=== PATIENT | female | born 1990 | race American Indian/Alaskan Native ===

== ENCOUNTER 2017-04-15 09:10 | Outpatient (CLI) | payer MEDICAID ==
[2017-04-15 09:34] VITALS: BP 115/63
== END 2017-04-15 10:40 | disposition home or self-care (01) ==
LOC: TRG 09:10
PROVIDERS: ATTEND Obstetrics & Gynecology
DX: Z34.93 Encounter for supervision of normal pregnancy, unspecified, third trimester (principal); Z3A.39 39 weeks gestation of pregnancy

== ENCOUNTER 2017-04-17 00:24 | Outpatient (CLI) | payer MEDICAID ==
[2017-04-17 00:40] VITALS: BP 114/60
--- NOTE | 2017-04-17 09:09 | Ultrasound Report ---
ULTRASOUND OB LIMITED History: Oligohydramnios, leaking amniotic fluid, rupture of membranes Technique: Transabdominal ultrasound with Doppler interrogation. Gestation: Single Amniotic Fluid: Normal NELY = 7.3 cm
== END 2017-04-17 02:31 | disposition home or self-care (01) ==
LOC: TRG 00:24
PROVIDERS: ATTEND Obstetrics & Gynecology
DX: O47.1 False labor at or after 37 completed weeks of gestation (principal); Z3A.39 39 weeks gestation of pregnancy
CPT/HCPCS: 59025; 76815

== ENCOUNTER 2017-04-17 04:11 | Inpatient (IN) | payer MEDICAID ==
[2017-04-17] MEDS ORDERED: XYLOCAINE 2% INFILTRATI ONE ×3 (04:25→08:03)
[2017-04-17] MEDS ORDERED: BRETHINE IVP PRN (04:25)
[2017-04-17] MEDS ORDERED: SUBLIMAZE IV PRN (04:25)
[2017-04-17] MEDS ORDERED: BRETHINE SUB-Q PRN (04:25)
[2017-04-17] MEDS ORDERED: MINERAL OIL PO PRN (04:25)
[2017-04-17] MEDS ORDERED: STADOL IV PRN (04:25)
[2017-04-17] MEDS ORDERED: PITOCin/NS 30 UNIT/500ML 30 UNITS/500 ML BAG IV SCH ×2 (05:00→07:00)
[2017-04-17] MEDS ORDERED: PITOCin/NS 20 UNIT/1000ML DRIP 20 UNITS/1,000 ML BAG IV SCH ×2 (05:00→09:00)
[2017-04-17 05:19] LABS: Hematocrit 35.2 % (30.3-42.9); Hemoglobin 11.1 gm/dl (10.1-14.3); Mean Corpuscular HGB Conc 32 % (30-34); Mean Corpuscular Hemoglobin 26 pg (28-32); Mean Corpuscular Volume 81 fl (79-97); Platelet Count 260 K/mm3 (140-440); Red Blood Count 4.36 M/mm3 (3.65-5.03); Red Cell Distribution Width 14.9 % (13.2-15.2); White Blood Count 11.7 K/mm3 (4.5-11.0)
[2017-04-17] MEDS: LACTATED RINGERS 1,000 ML IV SCH ×2 (05:49→07:09)
[2017-04-17] MEDS ORDERED: ePHEDrine SULFATE ONE ×2 (06:56→06:57)
[2017-04-17] MEDS: ePHEDrine SULFATE IV PRN ×2 (06:56→06:58)
[2017-04-17] MEDS ORDERED: ePHEDrine SULFATE IV PRN (07:08)
[2017-04-17] MEDS ORDERED: NARCAN 2 MG/2 ML IV PRN (07:08)
--- NOTE | 2017-04-17 07:08 | Anesthesia Consultation ---
Anesthesia Consult and Med Hx Date of service: 04/17/17 - Airway Anesthetic Teeth Evaluation: Good Intubation Access Assessment: Possibly Difficult - Pre-Operative Health Status ASA Pre-Surgery Classification: ASA3, Emergency Proposed Anesthetic Plan: Epidural, Spinal - Pulmonary Hx Asthma: No COPD: No Hx Pneumonia: No - Cardiovascular System Hx Hypertension: No - Central Nervous System Hx Seizures: No Hx Psychiatric Problems: No - Endocrine Hx Renal Disease: No Hx End Stage Renal Disease: No Hx Hypothyroidism: No Hx Hyperthyroidism: No - Hematic Hx Anemia: No Hx Sickle Cell Disease: No - Other Systems Hx Alcohol Use: No
[2017-04-17] MEDS ORDERED: fentaNYL-BUPIV 2 MCG/ML-0.125% 200 MCG/100 ML BAG EPIDURAL SCH (08:00)
--- NOTE | 2017-04-17 08:27 | History and Physical Report ---
History of Present Illness Date of examination: 04/17/17 Date of admission: 04/17/17 05:52 Chief complaint: srom and contractions History of present illness: This is a 26 yo at 40 weeks EDC 04/20/17 came in last night c/o contractions and was sent home and came back in active labor at 4-5 cm. 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 denies: smoking, alcohol abuse, IV drug use - Obstetrical History Expected Date of Delivery: 04/20/17 Actual Gestation: 39 Week(s) 4 Day(s) : 2 Para: 2 Hx # Term Pregnancies: 1 Number of Pregnancies: 0 Spontaneous Abortions: 0 Induced : 0 Number of Living Children: 1 Medications and Allergies Allergies Allergy/AdvReac Type Severity Reaction Status Date / Time No Known Allergies Allergy Verified 05/30/16 22:31 Home Medications Medication Instructions Recorded Confirmed Last Taken Type Acetaminophen/Codeine [Tylenol #3] 1 tab PO Q6H PRN #14 tab 11/01/15 11/04/15 17:00 Rx Levofloxacin [Levaquin TAB] 500 mg PO QDAY #7 tablet 11/01/15 11/04/15 11/03/15 17:00 Rx Diphenoxylate/Atropine [Lomotil] 1 tab PO Q4H PRN #16 tablet 11/04/15 Unknown Rx HYDROcodone/APAP 5-325 [[place] 1 each PO Q6HR PRN #14 tablet 05/31/16 Unknown Rx 5/325] Ibuprofen [Motrin] 600 mg PO Q8H PRN #20 tablet 05/31/16 Unknown Rx Active Meds: Active Medications Butorphanol Tartrate (Stadol) 2 mg IV Q2H PRN PRN Reason: Pain , Severe (7-10) Fentanyl (Sublimaze) 100 mcg IV Q2H PRN PRN Reason: Labor Pain Last Admin: 04/17/17 04:46 Dose: 100 mcg Lactated Ringer's (Lactated Ringers) 1,000 mls @ 125 mls/hr IV DIRECT DAYSI Last Admin: 04/17/17 07:09 Dose: 125 mls/hr Oxytocin/Sodium Chloride (Pitocin/Ns 20 Unit/1000ml Drip) 20 units in 1,000 mls @ 125 mls/hr IV DIRECT DAYSI Oxytocin/Sodium Chloride (Pitocin/Ns 30 Unit/500ml) 30 units in 500 mls @ 4 mls /hr IV TITR DAYSI PRN Reason: Protocol Oxytocin/Sodium Chloride (Pitocin/Ns 30 Unit/500ml) 30 units in 500 mls @ 1 mls /hr IV TITR DASYI; 1 MILLIUNITS/MIN PRN Reason: Protocol Fentanyl/Bupivacaine/Sodium Chlor (Fentanyl-Bupiv 2 Mcg/Ml-0.125%) 200 mcg in 100 mls @ 12 mls/hr EPIDURAL TITR DAYSI PRN Reason: Protocol Last Admin: 04/17/17 07:30 Dose: 12 mls/hr Mineral Oil (Mineral Oil) 30 ml PO QHS PRN PRN Reason: Constipation Review of Systems All systems: negative Genitourinary: leakage of fluid, contractions - Vital Signs Vital signs: Vital Signs Pulse Pulse Ox 93 H 98 04/17/17 04:25 04/17/17 04:25 Temp Pulse Resp BP Pulse Ox 98.2 F 94 H 22 134/63 100 04/17/17 07:11 04/17/17 08:19 04/17/17 07:11 04/17/17 07:53 04/17/17 08:19 - Physical Exam Breasts: Positive: deferred Cardiovascular: Regular rate, Normal S1 Lungs: Positive: Clear to auscultation, Normal air movement Abdomen: Positive: normal appearance, soft, normal bowel sounds. Negative: distention, tenderness Genitourinary (Female): Positive: normal external genitalia, normal perenium Vulva: both: normal Vagina: Positive: normal moisture Uterus: Positive: normal size, normal contour Anus/Rectum: Positive: normal perianal skin, heme negative Extremities: Positive: normal Deep Tendon Reflex Grade: Normal +2 - Obstetrical FHR: category 1 Uterine Contraction Monitor Mode: Palpation Cervical Dilatation: 10 Uterine Contraction Pattern: Regular Uterine Tone Measurement Phase: Contraction Uterine Contraction Intensity: Strong/Firm Results Result Diagrams: 04/17/17 04:40 Abnormal lab results 04/17/17 Range/Units 04:40 WBC 11.7 H (4.5-11.0) K/mm3 MCH 26 L (28-32) pg All other labs normal. Assessment and Plan A/P 26 yo at 39+weeks in active labor, srom clear, morbid obesity 1. GBS neg no abx needed 2. ivf and intial labs 3. expect vaginal delivery
[2017-04-17] MEDS ORDERED: TORADOL IV PRN (08:31)
[2017-04-17] MEDS ORDERED: MILK OF MAGNESIA PO PRN (08:31)
[2017-04-17] MEDS ORDERED: NORCO 5/325 PO PRN (08:31)
[2017-04-17] MEDS ORDERED: PHENERGAN PR PRN (08:31)
[2017-04-17] MEDS ORDERED: LANSINOH TP PRN (08:31)
[2017-04-17] MEDS ORDERED: PHENERGAN PO PRN (08:31)
[2017-04-17] MEDS ORDERED: BENADRYL PO PRN (08:31)
[2017-04-17] MEDS ORDERED: ZOFRAN IV PRN (08:31)
[2017-04-17] MEDS ORDERED: TUCKS PAD TP PRN (08:31)
[2017-04-17] MEDS ORDERED: TYLENOL PO PRN (08:31)
[2017-04-17] MEDS ORDERED: DULCOLAX PR PRN (08:31)
--- NOTE | 2017-04-17 08:39 | Procedure Note ---
OB Delivery Note - Delivery Date of Delivery: 04/17/17 Surgeon: ИВАН MON Estimated blood loss: 500cc - Vaginal Delivery position: OA Delivery induction: none Delivery monitor: external FHT, external uterine Route of delivery: Delivery placenta: spontaneous Delivery cord: 3 umbilical vessels Episiotomy: none Delivery laceration: 1st degree Delivery repair: vicryl Delivery comments: Patient was noted to be c/c+1 and commenced to pushing. She pushed 3 times and delivered the head in oa presentation the shoulders delivered easily and placed on mom skin to skin. the naso pahynx and oropharynx suctioned. the cord was clamped and cut. cord gas was obtained. Baby was 8# 2oz =3697 g.. Apgars 8 and 9. the baby delivered 0757 and placenta delivered 0801. Excellent hemostasis with repair of 1st degress with vicryl. EBL 500cc. Patient bonding with baby. - A at 1 minute: 8 at 5 minutes: 9 Gender: Male
[2017-04-17] MEDS ORDERED: SODIUM CHLORIDE FLUSH SYRINGE 10 ML IV NR (09:00)
[2017-04-17] MEDS: PRENATAL VITAMIN PO SCH (10:40)
[2017-04-17] MEDS: PERCOCET 5/325 PO PRN ×2 (10:40→17:00)
[2017-04-17] MEDS: COLACE PO SCH ×2 (10:40→22:09)
[2017-04-17 19:38] LABS: Hematocrit 31.4 % (30.3-42.9)
[2017-04-17] MEDS: SENOKOT S PO SCH (22:08)
[2017-04-18] MEDS: COLACE PO SCH ×2 (01:35→10:28)
[2017-04-18] MEDS ORDERED: BOOSTRIX IM ONE (06:00)
--- NOTE | 2017-04-18 08:29 | Progress Note ---
Assessment and Plan A: PPD#1 s/p at term P: Routine care. Discharge later today. Subjective - Subjective Date of service: 04/18/17 Principal diagnosis: s/p at term Interval history: NO overnight events. Patient reports: appetite normal, voiding normally, ambulating normally : doing well Objective - Vital Signs Latest vital signs: Vital Signs Temp Pulse Pulse Resp BP BP Pulse Ox 04/18/17 04:00 0 F L 0 L 0 L 04/17/17 23:45 98.7 F 70 18 116/55 04/17/17 20:35 98.6 F 62 18 120/67 04/17/17 16:00 98.4 F 62 18 132/60 04/17/17 10:00 98.4 F 74 20 131/55 04/17/17 09:13 78 111/58 04/17/17 08:58 78 112/53 04/17/17 08:43 82 113/55 04/17/17 08:39 76 100 04/17/17 08:34 78 100 04/17/17 08:29 81 100 Intake and Output 04/17/17 04/18/17 04/18/17 22:59 06:59 14:59 Intake Total 860 720 Output Total 400 400 Balance 460 320 Intake: IV 500 PITOCin/NS 20 UNIT/1000ML 500 DRIP 20 units In 1,000 ml @ 125 mls/hr IV DIRECT DAYSI Rx#:[id number] Oral 360 Intake, Free Water 720 Output: Urine 400 400 Void 400 400 Other: Total, Intake Amount 360 Total, Output Amount 400 400 # Voids Void 1 # Bowel Movements 1 1 - Exam Breasts: Present: deferred Cardiovascular: Present: Regular rate Lungs: Present: Clear to auscultation Abdomen: Present: soft (obese ) Uterus: Present: fundal height below umbilicus Extremities: Present: normal - Labs Labs: Abnormal lab results 04/17/17 Range/Units 19:18 Hgb 10.0 L (10.1-14.3) gm/dl
--- NOTE | 2017-04-18 08:30 | Discharge Summary ---
Providers - Providers Date of Admission: 04/17/17 05:52 Date of discharge: 04/18/17 Attending physician: ИВАН MON MD Primary care physician: ИВАН MON MD Hospitalization Reason for admission: active labor Delivery: Procedure details: Please see delivery note. Episiotomy: none Laceration: 1st degree complications: none Discharge diagnosis: IUP at term delivered [place] baby: male Hospital course: Pt underwent which she tolerated well. Her course was uncomplicated and she met discharge criteria on PPD#1. Condition at discharge: Stable Disposition: DISCHARGED TO HOME OR SELFCARE - Discharge Diagnoses (1) Term of male Status: Acute (2) Morbid obesity Status: Acute Qualifiers: Obesity type: unspecified obesity type Qualified Code(s): E66.01 - Morbid ( severe) obesity due to excess calories Plan - Provider Discharge Summary Additional instructions: [] Smoking cessation referral if applicable(refer to patient education folder for contact #) [] Refer to [facility]'s [facility] Booklet Call your doctor immediately for: * Fever > 100.5 * Heavy vaginal bleeding ( >1 pad per hour) * Severe persistent headache * Shortness of breath * Reddened, hot, painful area to leg or breast * Drainage or odor from incision. * Keep incision clean and dry at all times and follow doctor's instructions regarding bathing/showering - Follow up plan Follow up: ИВАН MNO MD [Primary Care Provider] - 7 Days
[2017-04-18] MEDS ORDERED: M-M-R II VACCINE SUB-Q ONE (08:31)
[2017-04-18] MEDS ORDERED: MOTRIN PO PRN (09:00)
[2017-04-18] MEDS: PRENATAL VITAMIN PO SCH (10:28)
[2017-04-18 12:48] VITALS: BP 110/64
[2017-04-18] MEDS: SENOKOT S PO SCH (13:26)
== END 2017-04-18 12:45 | disposition home or self-care (01) | DRG 774 ==
LOC: TRG 04:11 → LD 04:16 → TRG 05:52 → LD 05:52 → OB 09:57
PROVIDERS: ADMIT Obstetrics & Gynecology; ATTEND Obstetrics & Gynecology
PROC: 0HQ9XZZ Repair Perineum Skin, External Approach (ICD-10-PCS; principal; 2017-04-17)
PROC: 10E0XZZ Delivery of Products of Conception, External Approach (ICD-10-PCS; 2017-04-17)
DX: O42.92 Full-term premature rupture of membranes, unspecified as to length of time between rupture and onset of labor (principal); O98.52 Other viral diseases complicating childbirth; Z3A.39 39 weeks gestation of pregnancy; O99.214 Obesity complicating childbirth; E66.01 Morbid (severe) obesity due to excess calories; O70.0 First degree perineal laceration during delivery; Z37.0 Single live birth; B00.9 Herpesviral infection, unspecified; Z79.899 Other long term (current) drug therapy
CPT/HCPCS: 36415; 85014; 85018; 85027; 86850; 86900; 86901; 90471; 90715; 99211; G0463; J2590; J3010; J7120

== ENCOUNTER 2017-07-18 11:28 | Emergency (ER) | payer MEDICAID ==
[2017-07-18 12:18] VITALS: BP 143/84
--- NOTE | 2017-07-18 12:19 | Emergency Department Report ---
ED ENT HPI - General Chief complaint: Sore Throat Stated complaint: FEVER/SORE THROAT/BODY SORE /CONGESTION Time Seen by Provider: 07/18/17 12:13 Source: patient Mode of arrival: Ambulatory Limitations: No Limitations - History of Present Illness Initial comments: PT c/o sore throat and fever since yesterday. PT states she thinks she has strep throat because she sees spots on her tonsils MD complaint: sore throat -: Gradual, days(s) (yesterday ) Location: throat Severity scale (0 -10): 7 Quality: sharp Improves with: none (no improvement with Tylenol ) Worsens with: swallowing, eating, other (had to leave work because she felt worse ) Associated Symptoms: fever, pain with swallowing, sore throat. denies: cough, rhinorrhea - Related Data Previous Rx's Medication Instructions Recorded Last Taken Type Amoxicillin 500 mg PO BID #20 capsule 07/18/17 Unknown Rx traMADol [Ultram] 50 mg PO Q6HR PRN #12 tablet 07/18/17 Unknown Rx Allergies Allergy/AdvReac Type Severity Reaction Status Date / Time No Known Allergies Allergy Verified 05/30/16 22:31 ED Dental HPI - General Stated complaint: FEVER/SORE THROAT/BODY SORE /CONGESTION Time Seen by Provider: 07/18/17 12:13 - Related Data Previous Rx's Medication Instructions Recorded Last Taken Type Amoxicillin 500 mg PO BID #20 capsule 07/18/17 Unknown Rx traMADol [Ultram] 50 mg PO Q6HR PRN #12 tablet 07/18/17 Unknown Rx Allergies Allergy/AdvReac Type Severity Reaction Status Date / Time No Known Allergies Allergy Verified 05/30/16 22:31 ED Review of Systems ROS: Stated complaint: FEVER/SORE THROAT/BODY SORE /CONGESTION Other details as noted in HPI Comment: All other systems reviewed and negative Constitutional: denies: fever ENT: as per HPI, throat pain, congestion Respiratory: denies: cough Gastrointestinal: denies: abdominal pain Genitourinary: abnormal menses (on control ) ED Past Medical Hx - Past Medical History Hx Hypertension: No Hx Congestive Heart Failure: No Hx Diabetes: No Hx Deep Vein Thrombosis: No Hx Renal Disease: No Hx Sickle Cell Disease: No Hx Seizures: No Hx Asthma: No Hx COPD: No Hx HIV: No Additional medical history: OBESITY, Vaginal delivery x 1 - Social History Smoking Status: Never Smoker - Medications Home Medications: Home Medications Medication Instructions Recorded Confirmed Last Taken Type Amoxicillin 500 mg PO BID #20 capsule 07/18/17 Unknown Rx traMADol [Ultram] 50 mg PO Q6HR PRN #12 tablet 07/18/17 Unknown Rx ED Physical Exam - General Limitations: No Limitations General appearance: alert, in no apparent distress - Head Head exam: Present: atraumatic, normocephalic - Eye Eye exam: Present: normal appearance, PERRL, EOMI. Absent: conjunctival injection - ENT ENT exam: Present: mucous membranes moist, normal external ear exam - Expanded ENT Exam Expanded TM/Canal exam: Effusion: Left TM Mouth exam: Absent: drooling, trismus Throat exam: Positive: tonsillar erythema, tonsillomegaly, tonsillar exudate. Negative: R peritonsillar mass, L peritonsillar mass - Neck Neck exam: Present: normal inspection, full ROM, lymphadenopathy. Absent: tenderness, meningismus - Respiratory Respiratory exam: Present: normal lung sounds bilaterally. Absent: respiratory distress, wheezes, rales, rhonchi, chest wall tenderness - Cardiovascular Cardiovascular Exam: Present: regular rate, normal rhythm, normal heart sounds - GI/Abdominal GI/Abdominal exam: Present: soft. Absent: tenderness - Extremities Exam Extremities exam: Present: normal inspection, full ROM - Back Exam Back exam: Present: normal inspection, full ROM. Absent: tenderness, CVA tenderness (R), CVA tenderness (L) - Neurological Exam Neurological exam: Present: alert, oriented X3, normal gait - Expanded Neurological Exam Expanded Patient oriented to: Present: person, place, time Speech: Present: fluid speech Best Eye Response (Jj): (4) open spontaneously Best Motor Response ([place]): (6) obeys commands Best Verbal Response (Jj): (5) oriented Jj Total: 15 - Psychiatric Psychiatric exam: Present: normal affect, normal mood - Skin Skin exam: Present: warm, dry, intact, normal color ED Course Vital Signs 07/18/17 12:14 Temperature 98.3 F Pulse Rate 87 Respiratory 18 Rate Blood Pressure 143/84 O2 Sat by Pulse 100 Oximetry - Reevaluation(s) Reevaluation #1: 07/18/17 12:20 PT aware of dx and plan of care. No questions a this time. - Pulse Oximetry Interpretation Digit-Finger Initial Pulse Oximetry Readin Actions Taken: none ED Medical Decision Making - Differential Diagnosis pharyngitis, strep vs viral Critical Care Time: No Critical care attestation.: If time is entered above; I have spent that time in minutes in the direct care of this critically ill patient, excluding procedure time. ED Disposition Clinical Impression: Exudative pharyngitis Disposition: TO HOME OR SELFCARE Is pt being admited?: No Does the pt Need Aspirin: No Condition: Stable Instructions: Strep Throat (ED) Additional Instructions: Follow up with PCP in 3- 5 days Have your bp rechecked in at follow up No driving or alcohol if you are having to take Ultram for pain You can take Motrin/ Tylenol as needed for fever Strep throat is contagious - make sure you change your toothbrush and you wash all your dishes and utensils return to ED if worsening or concerns Prescriptions: Amoxicillin 500 mg PO BID #20 capsule traMADol [Ultram] 50 mg PO Q6HR PRN #12 tablet PRN Reason: Pain Referrals: ASHLEE CANO MD [Staff Physician] - 3-5 Days [facility] [Outside] - 3-5 Days Forms: Work/School Release Form(ED) Time of Disposition: 12:27
== END 2017-07-18 12:39 | disposition home or self-care (01) ==
LOC: ED 11:28
DX: J02.9 Acute pharyngitis, unspecified (principal); E66.9 Obesity, unspecified
CPT/HCPCS: 99282

== ENCOUNTER 2017-11-14 10:47 | Emergency (ER) | payer MEDICAID ==
[2017-11-14 11:32] VITALS: BP 160/82
== END 2017-11-14 11:45 | disposition left against medical advice (07) ==
LOC: ED 10:47
DX: H10.029 Other mucopurulent conjunctivitis, unspecified eye (principal); Z53.21 Procedure and treatment not carried out due to patient leaving prior to being seen by health care provider

== ENCOUNTER 2018-02-23 05:07 | Emergency (ER) | payer MEDICAID ==
[2018-02-23 05:21] VITALS: BP 129/85
--- NOTE | 2018-02-23 05:56 | XRay Report ---
FINAL REPORT EXAM: XR HAND 2V RT HISTORY: swollen and painful rith hand COMPARISONS: None. FINDINGS: AP and lateral views right hand No radiodense foreign body, bone lesion, periosteal reaction, or fracture. No deformity or gross malalignment. Imaged joint spaces are within normal limits. IMPRESSION: No acute osseous finding in the right hand.
--- NOTE | 2018-02-23 08:58 | Emergency Department Report ---
Upper Extremity - HPI Chief Complaint: Extremity Problem,Nontraumatic Stated Complaint: THUMB VERY SORED CAN'T MOVE IT Time Seen by Provider: 02/23/18 08:54 Upper Extremity: Right Thumb (pain with swelling) Occurred When: 2 Days Mechanism: Unsure Severity: moderate Symptoms: Yes Pain with Movement, Yes Limited Range of Movement, Yes Swelling, No Deformity, No Numbness, No Weakness, No Bruising/Ecchymosis, No Laceration or Abrasion Other History: Patient reports right thumb with pain and swelling that started two days ago. She denies any trauma. Patient also reports a stye to the lower left eyelid that started three days ago ED Review of Systems ROS: Stated complaint: THUMB VERY SORED CAN'T MOVE IT Other details as noted in HPI Constitutional: denies: chills, diaphoresis, fever, malaise, weakness Eyes: other (left lower lid stye). denies: eye pain, eye discharge, vision change ENT: denies: ear pain, throat pain, dental pain, hearing loss, epistaxis, congestion Respiratory: denies: cough, orthopnea, shortness of breath, SOB with exertion, SOB at rest, stridor, wheezing Cardiovascular: denies: chest pain, palpitations, dyspnea on exertion, orthopnea , edema, syncope, paroxysmal nocturnal dyspnea Musculoskeletal: joint swelling (right thumb). denies: back pain, arthralgia ED Past Medical Hx - Past Medical History Hx Hypertension: No Hx Congestive Heart Failure: No Hx Diabetes: No Hx Deep Vein Thrombosis: No Hx Renal Disease: No Hx Sickle Cell Disease: No Hx Seizures: No Hx Asthma: No Hx COPD: No Hx HIV: No Additional medical history: OBESITY, Vaginal delivery x 1 - Surgical History Past Surgical History?: No - Social History Smoking Status: Never Smoker Substance Use Type: Alcohol - Medications Home Medications: Home Medications Medication Instructions Recorded Confirmed Last Taken Type Amoxicillin 500 mg PO BID #20 capsule 07/18/17 Unknown Rx traMADol [Ultram] 50 mg PO Q6HR PRN #12 tablet 07/18/17 Unknown Rx Clindamycin [Clindamycin CAP] 300 mg PO Q8H #30 cap 02/23/18 Unknown Rx Ibuprofen 800 mg PO TID PRN #25 tablet 02/23/18 Unknown Rx Upper Extremity Exam - Exam General: Vital signs noted. No distress. Alert and acting appropriately. Left lower eyelid with gland red and swollen, PERRLA, conjunctiva pink Head and Torso: No HEENT Abnormality, No Neck Tenderness, No Chest/Lungs Abnormality, No Abdominal Tenderness, No Back Tenderness Shoulder Exam: Yes Normal Range of Motion in Shoulder, No Shoulder Tenderness, No Clavicle Tenderness, No Shoulder Deformity, No AC Joint Tenderness Arm Exam: No Arm/Humerus Tenderness, No Arm Deformity Elbow: No Elbow Tenderness, No Normal Range of Motion in Elbow, No Elbow Deformity Forearm: No Forearm Tenderness, No Forearm Deformity, No Pain with Pronation, No Pain with Supination Wrist: Yes Normal ROM in Wrist, No Wrist Tenderness, No Wrist Deformity, No Snuffbox Tenderness, No Pain with Axial Thumb Compression Hand: Yes Hand Tenderness (right thumb TTP with erythema noted to dorsum area), Yes Normal ROM in Digit(s), No Hand Deformity, No Digit Tenderness, No Digit(s) Deformity, No Tendon Dysfunction CMS Exam: No Broken Skin, No Normal Distal Pulses, No Normal Capillary Refill, No Normal Distal Sensation ED Course Vital Signs 02/23/18 05:12 Temperature 98 F Pulse Rate 74 Respiratory 18 Rate Blood Pressure 129/85 O2 Sat by Pulse 100 Oximetry - Reevaluation(s) Reevaluation #1: 02/23/18 09:01 imaging study and visual acuity ordered ED Medical Decision Making - Lab Data Vital Signs 02/23/18 05:12 Temperature 98 F Pulse Rate 74 Respiratory 18 Rate Blood Pressure 129/85 O2 Sat by Pulse 100 Oximetry Vital Signs Temp 98 F 02/23/18 05:12 Pulse 74 02/23/18 05:12 Resp 18 02/23/18 05:12 BP 129/85 02/23/18 05:12 Pulse Ox 100 02/23/18 05:12 - Radiology Data Radiology results: image reviewed EXAM: XR HAND 2V RT HISTORY: swollen and painful rith hand COMPARISONS: None. FINDINGS: AP and lateral views right hand No radiodense foreign body, bone lesion, periosteal reaction, or fracture. No deformity or gross malalignment. Imaged joint spaces are within normal limits. IMPRESSION: No acute osseous finding in the right hand. - Medical Decision Making During the course of ED, imaging study was ordered. The study revealed no acute osseous findings in the right hand. Patient was sent home with prescriptions for Clindamycin and Ibuprofen, instructed to follow up with the selective referral given at discharge, she verbalized understanding - Differential Diagnosis Right Thumb Cellulitis, Right Thumb Fracture, Left Eye Hordeolum Critical care attestation.: If time is entered above; I have spent that time in minutes in the direct care of this critically ill patient, excluding procedure time. ED Disposition Clinical Impression: Cellulitis Qualifiers: Site of cellulitis: extremity Site of cellulitis of extremity: finger Laterality: right Qualified Code(s): L03.011 - Cellulitis of right finger Hordeolum externum (stye) Qualifiers: Laterality: left Eyelid: lower Qualified Code(s): H00.015 - Hordeolum externum left lower eyelid Disposition: DC- TO HOME OR SELFCARE Is pt being admited?: No Does the pt Need Aspirin: No Condition: Stable Instructions: Cellulitis (ED), Stye (ED) Additional Instructions: Take medication as directed. Apply a warm compress to the left eye three times a day. Warm soaks to the right thumb three times a day. Follow up in the ED in 48 hours for reevaluation of wound response to medication therapy. Return back to the ED for worsening symptoms Prescriptions: Clindamycin [Clindamycin CAP] 300 mg PO Q8H #30 cap Ibuprofen 800 mg PO TID PRN #25 tablet PRN Reason: Pain Referrals: PRIMARY CARE,MD [Primary Care Provider] - 3-5 Days [facility] [Outside] - 3-5 Days [facility] [Outside] - 3-5 Days Forms: Work/School Release Form(ED) Time of Disposition: 09:08
== END 2018-02-23 09:16 | disposition home or self-care (01) ==
LOC: ED 05:07
DX: L03.011 Cellulitis of right finger (principal); H00.015 Hordeolum externum left lower eyelid
CPT/HCPCS: 99283

== ENCOUNTER 2020-01-08 16:37 | Emergency (ER) | payer MEDICAID ==
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
[2020-01-08 17:27] VITALS: BP 141/90
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
== END 2020-01-08 20:22 | disposition left against medical advice (07) ==
LOC: ED 16:37
DX: Z04.1 Encounter for examination and observation following transport accident (principal); Z53.21 Procedure and treatment not carried out due to patient leaving prior to being seen by health care provider
CPT/HCPCS: 72040

== ENCOUNTER 2020-08-10 19:09 | Observation (INO) | payer MEDICAID ==
[2020-08-10] MEDS ORDERED: ASPIRIN 325 MG TAB PO ONE (19:35)
[2020-08-10 20:51] LABS: Basophils % (Auto) 0.1 % (0.0-1.8); Eosinophils % (Auto) 0.4 % (0.0-4.3); Hematocrit 32.3 % (30.3-42.9); Hemoglobin 10.4 gm/dl (10.1-14.3); Lymphocytes % (Auto) 10.3 % (13.4-35.0); Mean Corpuscular HGB Conc 32 % (30-34); Mean Corpuscular Volume 82 fl (79-97); Monocytes # (Auto) 0.5 K/mm3 (0.0-0.8); Monocytes % (Auto) 4.5 % (0.0-7.3); Platelet Count 319 K/mm3 (140-440); Red Blood Count 3.93 M/mm3 (3.65-5.03); Red Cell Distribution Width 17.2 % (13.2-15.2)
[2020-08-10 20:58] LABS: Blood Urea Nitrogen 11 mg/dL (7-17); Calcium 9.4 mg/dL (8.4-10.2); Hemolysis Index 3
[2020-08-10 20:59] LABS: BUN/Creatinine Ratio 22
[2020-08-10] MEDS ORDERED: ONDANSETRON 4 MG/2 ML INJ IV ONE (21:14)
[2020-08-10] MEDS ORDERED: MORPHINE 4 MG/1 ML INJ IV ONE (21:14)
[2020-08-10] MEDS ORDERED: SODIUM CHLORIDE 0.9% 1000 ML 1,000 ML IV ONE (21:14)
--- NOTE | 2020-08-10 21:16 | Emergency Department Report ---
ED Chest Pain HPI - General Chief Complaint: Chest Pain Stated Complaint: CHEST PAIN BODY ACHES LT SHOULDER PAIN Time Seen by Provider: 08/10/20 21:03 Source: patient Mode of arrival: Ambulatory Limitations: No Limitations - History of Present Illness Initial Comments: This is a 30-year-old -[place] female presents to the emergency department from home with complaint of some left-sided chest pain with radiation towards the left shoulder and back that started earlier today. She denies any shortness of breath at rest but does have shortness of breath, and worsening of her symptoms, with exertion. No known alleviating factors. She has not taken anything for symptoms prior to presentation. She denies any fever, cough, nausea, vomiting or diaphoresis. No past medical history. She is not a tobacco smoker denies any illicit drug use. No family history of early heart attack or cardiac events. The patient had similar symptoms a few weeks ago on the right side and was diagnosed with pneumonia. She has since finished the antibiotics. - Related Data Previous Rx's Medication Instructions Recorded Last Taken Type Amoxicillin 500 mg PO BID #20 capsule 07/18/17 Unknown Rx traMADoL [Ultram] 50 mg PO Q6HR PRN #12 tablet 07/18/17 Unknown Rx Clindamycin [Clindamycin CAP] 300 mg PO Q8H #30 cap 02/23/18 Unknown Rx Ibuprofen 800 mg PO TID PRN #25 tablet 02/23/18 Unknown Rx Allergies Allergy/AdvReac Type Severity Reaction Status Date / Time No Known Allergies Allergy Verified 05/30/16 22:31 Heart Score - HEART Score History: Slightly suspicious EKG: Normal Age: < 45 Risk factors: No known risk factors Troponin: < normal limit HEART Score: 0 - Critical Actions Critical Actions: 0-3 pts:0.9-1.7%risk of adverse cardiac event.Candidate for discharge ED Review of Systems ROS: Stated complaint: CHEST PAIN BODY ACHES LT SHOULDER PAIN Other details as noted in HPI Comment: All other systems reviewed and negative Constitutional: denies: chills, fever Eyes: denies: eye pain, vision change ENT: denies: ear pain, throat pain Respiratory: SOB with exertion. denies: shortness of breath Cardiovascular: chest pain. denies: edema Gastrointestinal: denies: abdominal pain, vomiting Genitourinary: denies: dysuria, discharge Musculoskeletal: back pain. denies: joint swelling Skin: denies: rash, lesions Neurological: denies: headache, weakness ED Past Medical Hx - Past Medical History Previous Medical History?: No Hx Hypertension: No Hx Congestive Heart Failure: No Hx Diabetes: No Hx Deep Vein Thrombosis: No Hx Renal Disease: No Hx Sickle Cell Disease: No Hx Seizures: No Hx Asthma: No Hx COPD: No Hx HIV: No Additional medical history: OBESITY, Vaginal delivery x 1 - Social History Smoking Status: Never Smoker Substance Use Type: None - Medications Home Medications: Home Medications Medication Instructions Recorded Confirmed Last Taken Type Amoxicillin 500 mg PO BID #20 capsule 07/18/17 Unknown Rx traMADoL [Ultram] 50 mg PO Q6HR PRN #12 tablet 07/18/17 Unknown Rx Clindamycin [Clindamycin CAP] 300 mg PO Q8H #30 cap 02/23/18 Unknown Rx Ibuprofen 800 mg PO TID PRN #25 tablet 02/23/18 Unknown Rx ED Physical Exam - General Limitations: No Limitations - Other Other exam information: GENERAL: The patient is well-developed well-nourished. HENT: Normocephalic. Atraumatic. Patient has moist mucous membranes. EYES: Extraocular motions are intact. NECK: Supple. Trachea is midline. CHEST/LUNGS: Clear to auscultation. Some mild rhonchi heard. There is tachypnea but no accessory muscle use. No cough heard during examination. HEART/CARDIOVASCULAR: Regular. There is mild to moderate tachycardia. There is no murmur. ABDOMEN: Abdomen is soft, nontender. Patient has normal bowel sounds. Morbidly obese habitus. SKIN: Skin is warm and dry. NEURO: The patient is awake, alert, and oriented. The patient is cooperative. The patient has no focal neurologic deficits. Normal speech. MUSCULOSKELETAL: There is no tenderness or deformity. There is no limitation range of motion. ED Course Vital Signs 08/10/20 08/10/20 08/10/20 19:30 21:08 21:14 Temperature 99.6 F Pulse Rate 120 H 114 H Respiratory 17 22 24 Rate Blood Pressure 151/99 Blood Pressure [Right] O2 Sat by Pulse 100 100 Oximetry 08/10/20 08/10/20 08/10/20 21:19 22:00 23:00 Temperature Pulse Rate 110 H 108 H 114 H Respiratory 24 40 H 16 Rate Blood Pressure 158/83 158/83 Blood Pressure 158/83 [Right] O2 Sat by Pulse 100 100 85 Oximetry - Reevaluation(s) Reevaluation #1: 08/10/20 23:41 We tested the patient with ambulation and her oxygen saturation drops down to 93% and her work of breathing increases with tachypnea in the 40s. Patient will be admitted to the hospital for further evaluation and treatment. She has been in patient isolation since arrival to the emergency department. Placed on droplet precautions as PUI. CORKY score - Corky Score Age > 65: (0) No Aspirin use within the Past 7 Days: (0) No 3 or more CAD Risk Factors: (0) No 2 or more Angina events in past 24 hrs: (1) Yes Known CAD with more than 50% Stenosis: (0) No Elevated Cardiac Markers: (0) No ST Deviation Greater than 0.5mm: (0) No CORKY Score: 1 ED Medical Decision Making - Lab Data Result diagrams: 08/10/20 20:19 08/10/20 20:19 - EKG Data -: EKG Interpreted by Dc EKG shows normal: sinus rhythm, axis, intervals, QRS complexes, ST-T waves Rate: tachycardia - EKG Data When compared to previous EKG there are: previous EKG unavailable Interpretation: normal EKG (With mild to moderate tachycardia) - Radiology Data Radiology results: report reviewed CHEST 2 VIEWS INDICATION / CLINICAL INFORMATION: Chest Pain. Recent pneumonia on 07/21. COMPARISON: 05/31/2016 FINDINGS: SUPPORT DEVICES: None. HEART / MEDIASTINUM: Stable since prior exam. LUNGS / PLEURA: Interval development of bibasilar opacities, left greater than right. No pneumothorax or pleural effusion. ADDITIONAL FINDINGS: No significant additional findings. IMPRESSION: 1. Bibasilar infiltrates. These may be infectious etiology given the patient's clinical history. No recent chest radiograph for comparison. . CTA CHEST WITH IV CONTRAST INDICATION: P.E. PROTOCOL!!! S.O.B., elevated D- dimer. TECHNIQUE: Axial CT images were obtained through the chest after injection of 100 cc Omni 350 IV contrast. 3 plane MIP reconstructions were produced. All CT scans at this location are performed using CT dose reduction for ALARA by means of automated exposure control. COMPARISON: None available. FINDINGS: PULMONARY ARTERIES: No pulmonary emboli. THORACIC AORTA: No acute abnormality. HEART: Enlarged with small pericardial effusion. CORONARY ARTERIES: No significant calcification. PLEURA: Small left pleural effusion. No pneumothorax. LYMPH NODES: No significant mediastinal adenopathy.Several enlarged bilateral axillary nodes. LUNGS: Moderate compressive and bilateral linear atelectasis. ADDITIONAL FINDINGS: UPPER ABDOMEN: No acute findings. SKELETAL STRUCTURES: No significant osseous abnormality. IMPRESSION: 1. No CT evidence for pulmonary embolism. 2. Bilateral axillary adenopathy. 2. Cardiomegaly, small pericardial and left pleural effusions. - Medical Decision Making This patient presents to the emergency department with complaint of some left- sided chest pain with radiation to the left shoulder, dyspnea with exertion and worsening of her symptoms with exertion. EKG did not have any morphology consistent with ST elevation AR. Chest x-ray showed concern for bibasilar pneumonia and was read by radiology as showing bibasilar infiltrates. Patient's labs showed elevated d-dimer level of 2300. For this reason a CT angiography of the chest was completed that was read as having bibasilar compressive atelectasis, a small left pleural effusion, and a small pericardial effusion. Patient has had negative troponins x2, and a low BNP. Patient's heart rate has been variable between 110 to 125 bpm. At times the patient is also seen tachypneic breathing at about 30-40 times per minute. We tested the patient's oxygen saturation with ambulation. The patient went down to 93% on room air and began breathing at about 40-45 times per minute. For this reason the patient will be admitted to the hospital for further evaluation and treatment and was accepted for admission by the hospitalist, Dr. Smith. Patient has received some IV fluid resuscitation, IV antibiotics, aspirin, IV analgesia, IV antiemetics. The COVID labs have been added including ferritin, LDH, procalcitonin and CRP. The patient is in isolation and on droplet precautions. Critical Care Time: Yes Critical care time in (mins) excluding proc time.: 31 Critical care attestation.: If time is entered above; I have spent that time in minutes in the direct care of this critically ill patient, excluding procedure time. Critical care time has been spent on this patient in doing her initial evaluation, multiple re-evaluations, ordering and interpretation of labs and im aging, IV analgesia, IV fluid resuscitation, IV antibiotics, multiple discussions with the patient. Critical Care Time: 31 minutes ED Disposition Clinical Impression: Suspected 2019 novel coronavirus infection, Pericardial effusion, Hypoxemia Dyspnea Qualifiers: Dyspnea type: shortness of breath Qualified Code(s): R06.02 - Shortness of breath; R06.00 - Dyspnea, unspecified; R06.01 - Orthopnea Chest pain Qualifiers: Chest pain type: unspecified Qualified Code(s): R07.9 - Chest pain, unspecified Hypertension Qualifiers: Hypertension type: essential hypertension Qualified Code(s): I10 - Essential (primary) hypertension Disposition: -09 OP ADMIT IP TO THIS HOSP Is pt being admited?: Yes Condition: Serious Referrals: PRIMARY CARE, [Primary Care Provider] - 3-5 Days Time of Disposition: 23:43
--- NOTE | 2020-08-10 21:27 | XRay Report ---
CHEST 2 VIEWS INDICATION / CLINICAL INFORMATION: Chest Pain. Recent pneumonia on 07/21. COMPARISON: 05/31/2016 FINDINGS: SUPPORT DEVICES: None. HEART / MEDIASTINUM: Stable since prior exam. LUNGS / PLEURA: Interval development of bibasilar opacities, left greater than right. No pneumothorax or pleural effusion. ADDITIONAL FINDINGS: No significant additional findings. IMPRESSION: 1. Bibasilar infiltrates. These may be infectious etiology given the patient's clinical history. No r ecent chest radiograph for comparison. Signer Name: Juan Laughlin MD Signed: 08/10/2020 9:23 PM Workstation Name: [id number]
[2020-08-10] MEDS ORDERED: cefTRIAXone/NS 1 GM/50 ML 1 GM/50 ML BAG IV ONE (21:31)
[2020-08-10] MEDS ORDERED: AZITHROMYCIN 500 MG in SODIUM CHLORIDE 0.9% 250ML 250 ML IV ONE (21:31)
--- NOTE | 2020-08-10 23:16 | Cat Scan Report ---
CTA CHEST WITH IV CONTRAST INDICATION: P.E. PROTOCOL!!! S.O.B., elevated D-dimer. TECHNIQUE: Axial CT images were obtained through the chest after injection of 100 cc Omni 350 IV contrast. 3 ava ne MIP reconstructions were produced. All CT scans at this location are performed using CT dose reduc tion for ALARA by means of automated exposure control. COMPARISON: None available. FINDINGS: PULMONARY ARTERIES: No pulmonary emboli. THORACIC AORTA: No acute abnormality. HEART: Enlarged with small pericardial effusion. CORONARY ARTERIES: No significant calcification. PLEURA: Small left pleural effusion. No pneumothorax. LYMPH NODES: No significant mediastinal adenopathy.Several enlarged bilateral axillary nodes. LUNGS: Moderate compressive and bilateral linear atelectasis. ADDITIONAL FINDINGS: UPPER ABDOMEN: No acute findings. SKELETAL STRUCTURES: No significant osseous abnormality. IMPRESSION: 1. No CT evidence for pulmonary embolism. 2. Bilateral axillary adenopathy. 2. Cardiomegaly, small pericardial and left pleural effusions. Signer Name: Alex Steiner MD Signed: 08/10/2020 11:12 PM Workstation Name: [id number]
[2020-08-11] MEDS ORDERED: ACETAMINOPHEN 325 MG TAB PO PRN (00:26)
[2020-08-11] MEDS ORDERED: MAGNESIUM HYDROXIDE (MOM) ORAL LIQD UDC PO PRN (00:26)
[2020-08-11] MEDS ORDERED: ONDANSETRON 4 MG/2 ML INJ IV PRN (00:26)
[2020-08-11] MEDS ORDERED: NITROGLYCERIN 0.4 MG TAB SUBL SL PRN (00:26)
--- NOTE | 2020-08-11 00:47 | History and Physical Report ---
History of Present Illness Date of examination: 08/11/20 Date of admission: 08/11/20 23:49 Chief complaint: CHEST PAIN SHORTNESS OF BREATH History of present illness: 30-year-old -[place] female with known history of morbid obesity presenting to the emergency room today complaining of left-sided chest pain which started earlier today. Pain is said to radiate towards the left shoulder and the back. She has had some shortness of breath which gets worse on exertion. There is no no relieving or exacerbating factor. Patient denies any fever or chills, no nausea or vomiting, no diarrhea, no diaphoresis, no headache or dizziness. She had similar symptoms few weeks ago and was seen at [facility] the first week of July during which she was diagnosed with pneumonia and placed on oral antibiotics which she indicates was amoxicillin. She has since completed the course of the antibiotics. Work-up in the emergency room today showed bibasilar pneumonia on the chest x- ray. CT angiogram showed pleural effusion. EKG and troponin has been unremarkable. Patient is being admitted for pneumonia and also the chest pain. She will also be ruled out for COVID-19. Patient has been started on empiric IV antibiotics. Past History Past Medical History: other (Obesity) Past Surgical History: No surgical history Social history: no significant social history Family history: no significant family history Medications and Allergies Allergies Allergy/AdvReac Type Severity Reaction Status Date / Time No Known Allergies Allergy Verified 05/30/16 22:31 Home Medications Medication Instructions Recorded Confirmed Last Taken Type Naproxen 500 mg PO BID 08/10/20 08/10/20 Unknown History Review of Systems Constitutional: no fever, no chills Ears, nose, mouth and throat: no nasal congestion, no sore throat Cardiovascular: chest pain, dyspnea on exertion, no palpitations Respiratory: cough with sputum, shortness of breath, no cough Gastrointestinal: no abdominal pain, no nausea, no vomiting, no diarrhea Genitourinary Female: no pelvic pain, no flank pain, no dysuria Musculoskeletal: no neck pain, no low back pain Integumentary: no rash, no pruritis Neurological: no headaches, no confusion Psychiatric: no anxiety, no depression Exam - Constitutional Vitals: Temp Pulse Resp BP Pulse Ox 98.6 F 111 H 31 H 139/71 100 08/11/20 00:29 08/11/20 00:00 08/11/20 00:00 08/11/20 00:00 08/11/20 00:00 General appearance: Present: no acute distress, well-nourished, obese - EENT Eyes: Present: PERRL, EOM intact. Absent: scleral icterus ENT: hearing intact, clear oral mucosa, dentition normal - Neck Neck: Present: supple, normal ROM - Respiratory Respiratory effort: normal Respiratory: bilateral: diminished - Cardiovascular Rhythm: regular Heart Sounds: Present: S1 & S2. Absent: gallop, systolic murmur, diastolic murmur, rub - Extremities Extremities: no ischemia, pulses intact, pulses symmetrical, No edema, Full ROM Peripheral Pulses: within normal limits - Abdominal General gastrointestinal: Present: soft, non-tender, non-distended, normal bowel sounds. Absent: mass - Integumentary Integumentary: Present: clear, warm, dry. Absent: rash - Musculoskeletal Musculoskeletal: strength equal bilaterally - Psychiatric Psychiatric: appropriate mood/affect, intact judgment & insight, memory intact, cooperative - Neurologic Neurologic: CNII-XII intact, no focal deficits, moves all extremities HEART Score - HEART Score History: Slightly suspicious EKG: Normal Age: < 45 Risk factors: No known risk factors Troponin: Troponin T < 0.010 ng/mL (0.00-0.029) 08/10/20 23:32 Troponin: < normal limit HEART Score: 0 - Critical Actions Critical Actions: 0-3 pts:0.9-1.7%risk of adverse cardiac event.Candidate for discharge Results - Labs CBC & Chem 7: 08/10/20 20:19 08/10/20 20:19 Labs: Abnormal lab results 08/10/20 08/10/20 08/10/20 Range/Units 20:19 20:19 21:24 MCH 27 L (28-32) pg RDW 17.2 H (13.2-15.2) % Lymph % (Auto) 10.3 L (13.4-35.0) % Lymph # 1.0 L (1.2-5.4) K/mm3 Seg Neutrophils % 84.7 H (40.0-70.0) % Seg Neutrophils # 8.5 H (1.8-7.7) K/mm3 D-Dimer 2388.43 H (0-234) ng/mlDDU Sodium 136 L (137-145) mmol/L Creatinine 0.5 L (0.6-1.2) mg/dL Glucose 119 H (65-100) mg/dL Assessment and Plan - Patient Problems (1) Chest pain Current Visit: Yes Status: Acute Qualifiers: Chest pain type: unspecified Qualified Code(s): R07.9 - Chest pain, unspec ified Plan to address problem: We will check serial cardiac enzymes. Patient placed on aspirin , sublingual nitroglycerin and IV morphine as needed for chest pain. We will schedule patient for echocardiogram. We will request cardiology evaluation. (2) Suspected 2019 novel coronavirus infection Current Visit: Yes Status: Acute Plan to address problem: Patient will be placed on isolation precautions. We will request infectious disease evaluation. (3) Morbid obesity Current Visit: No Status: Acute Plan to address problem: We will get dietary consult. (4) DVT prophylaxis Current Visit: Yes Status: Acute Plan to address problem: Patient placed on subcutaneous Lovenox (5) Full code status Current Visit: Yes Status: Acute
[2020-08-11] MEDS ORDERED: MORPHINE 2 MG/1 ML INJ IV PRN (00:49)
[2020-08-11] MEDS: ACETAMINOPHEN 325 MG TAB PO PRN ×2 (01:33→20:46)
[2020-08-11 06:27] LABS: Basophils % (Auto) 0.1 % (0.0-1.8); Eosinophils % (Auto) 0.5 % (0.0-4.3); Hematocrit 28.5 % (30.3-42.9); Hemoglobin 9.5 gm/dl (10.1-14.3); Lymphocytes # (Auto) 1.1 K/mm3 (1.2-5.4); Lymphocytes % (Auto) 11.2 % (13.4-35.0); Mean Corpuscular HGB Conc 33 % (30-34); Mean Corpuscular Volume 81 fl (79-97); Monocytes # (Auto) 0.6 K/mm3 (0.0-0.8); Monocytes % (Auto) 6.2 % (0.0-7.3); Platelet Count 261 K/mm3 (140-440); Red Blood Count 3.54 M/mm3 (3.65-5.03); Red Cell Distribution Width 17.3 % (13.2-15.2)
[2020-08-11 06:40] LABS: Blood Urea Nitrogen 9 mg/dL (7-17); Calcium 8.9 mg/dL (8.4-10.2); Hemolysis Index 3
[2020-08-11 06:42] LABS: BUN/Creatinine Ratio 18
--- NOTE | 2020-08-11 09:20 | Consultation ---
History of Present Illness - Reason for Consult Consult date: 08/11/20 r/o COVID Requesting physician: JAVIER CINTRON - History of Present Illness 30 years old female with history of morbid obesity and recent pneumonia admitted on due to 24-hour history of left-sided chest pain radiated to the left shoulder and back. Patient also reports shortness of breath and dyspnea on exertion. Patient denies any fever, chills, nausea, vomiting, diarrhea. Patient was seen at [facility] recently and diagnosed with pneumonia treated with amoxicillin which he completed. On arrival, temperature 99.6 - 100.6, HR 120, RR 17, O2 sat 100%, BP 151/99. Initial WBC 10.1. D-dimer 2388. Ferritin 125. CRP 25. LDH 255. Procalcitonin normal. Chest x-ray shows bibasilar pneumonia. CTA shows several enlarged axillary lymph nodes, cardiomegaly, small pericardial effusion, bilateral atelectasis. Review of Systems: reviewed ED and H&P notes. Limited due to PPE conservation strategy Past History Past Medical History: other (Obesity) Past Surgical History: No surgical history Social history: no significant social history Family history: no significant family history Medications and Allergies Allergies Allergy/AdvReac Type Severity Reaction Status Date / Time No Known Allergies Allergy Verified 05/30/16 22:31 Home Medications Medication Instructions Recorded Confirmed Last Taken Type Naproxen 500 mg PO BID 08/10/20 08/10/20 Unknown History Active Meds: Active Medications Acetaminophen (Tylenol) 650 mg PO Q4H PRN PRN Reason: Pain MILD(1-3)/Fever >100.5/NGUYEN Last Admin: 08/11/20 01:33 Dose: 650 mg Documented by: Aspirin (Ecotrin) 325 mg PO QDAY DAYSI Azithromycin (Zithromax) 500 mg PO QDAY [facility] Stop: 08/14/20 10:01 Ceftriaxone Sodium (Rocephin/Ns 2 Gm/100 Ml) 2 gm in 100 mls @ 200 mls/hr IV Q24HR DAYSI; Protocol Azithromycin 500 mg/ Sodium (Chloride) 250 mls @ 250 mls/hr IV Q24HR DAYSI; Protocol Stop: 08/11/20 15:00 Magnesium Hydroxide (Milk Of Magnesia) 30 ml PO Q4H PRN PRN Reason: Constipation Morphine Sulfate (Morphine) 2 mg IV Q5MIN PRN PRN Reason: Chest Pain unrelieved by NTG Nitroglycerin (Nitrostat) 0.4 mg SL Q5M PRN PRN Reason: Chest Pain Ondansetron HCl (Zofran) 4 mg IV Q8H PRN PRN Reason: Nausea And Vomiting Sodium Chloride (Sodium Chloride Flush Syringe 10 Ml) 10 ml IV BID DAYSI Sodium Chloride (Sodium Chloride Flush Syringe 10 Ml) 10 ml IV PRN PRN PRN Reason: LINE FLUSH Physical Examination - Physical Exam Narrative exam: Physical Exam: reviewed ED and hospitalist notes, limited due to conservation of PPE General appearance: limited due to conservation of PPE Eyes: limited due to conservation of PPE HENT: Atraumatic; limited due to conservation of PPE Lungs: limited due to conservation of PPE CV: limited due to conservation of PPE Abdomen: limited due to conservation of PPE Extremities: limited due to conservation of PPE Skin: limited due to conservation of PPE Psych: limited due to conservation of PPE Neuro: limited due to conservation of PPE - Constitutional Vitals: Vital Signs Temp Pulse Resp BP Pulse Ox 98.6 F 106 H 18 143/87 96 08/11/20 06:04 08/11/20 06:04 08/11/20 06:04 08/11/20 06:04 08/11/20 06:04 Temperature -Last 24 Hours Temperature 98.6 F Temperature 100.6 F Temperature 98.6 F Temperature 99.6 F Results - Labs CBC & Chem 7: 08/11/20 05:38 08/11/20 05:38 Labs: Abnormal lab results 08/10/20 08/10/20 08/10/20 Range/Units 20:19 20:19 21:24 RBC (3.65-5.03) M/mm3 Hgb (10.1-14.3) gm/dl Hct (30.3-42.9) % MCH 27 L (28-32) pg RDW 17.2 H (13.2-15.2) % Lymph % (Auto) 10.3 L (13.4-35.0) % Lymph # 1.0 L (1.2-5.4) K/mm3 Seg Neutrophils % 84.7 H (40.0-70.0) % Seg Neutrophils # 8.5 H (1.8-7.7) K/mm3 D-Dimer 2388.43 H (0-234) ng/mlDDU Sodium 136 L (137-145) mmol/L Carbon Dioxide (22-30) mmol/L Creatinine 0.5 L (0.6-1.2) mg/dL Glucose 119 H (65-100) mg/dL Lactate Dehydrogenase (91-180) units/L C-Reactive Protein (0.00-1.30) mg/dL 08/10/20 08/11/20 08/11/20 Range/Units 23:43 05:38 05:38 RBC 3.54 L (3.65-5.03) M/mm3 Hgb 9.5 L (10.1-14.3) gm/dl Hct 28.5 L (30.3-42.9) % MCH 27 L (28-32) pg RDW 17.3 H (13.2-15.2) % Lymph % (Auto) 11.2 L (13.4-35.0) % Lymph # 1.1 L (1.2-5.4) K/mm3 Seg Neutrophils % 82.0 H (40.0-70.0) % Seg Neutrophils # 7.9 H (1.8-7.7) K/mm3 D-Dimer (0-234) ng/mlDDU Sodium (137-145) mmol/L Carbon Dioxide 21 L (22-30) mmol/L Creatinine 0.5 L (0.6-1.2) mg/dL Glucose 103 H (65-100) mg/dL Lactate Dehydrogenase 255 H (91-180) units/L C-Reactive Protein 25.00 H (0.00-1.30) mg/dL Assessment and Plan Cultures: None Assessment: 30 years old female with history of morbid obesity and recent pneumonia admitted on due to 24-hour history of left-sided chest pain radiated to the left shoulder and back: #Sepsis: Present on admission with low-grade fever, tachycardia; secondary to possible pneumonia #Possible bilateral pneumonia: Chest x-ray shows bibasilar pneumonia however CTA did not show consolidation. Patient is not hypoxic. Patient without persistent cough. Complaining mainly of chest pain dyspnea on exertion. Noted on CTA no pulmonary embolism however cardiomegaly and small pericardial effusion and bilateral axillary lymph nodes. Procalcitonin is normal making bacterial pneumonia less likely. Patient with recent history of pneumonia. ? Viral syndrome ? COVID ? Pericarditis (no evidence of pericarditis on EKG) ? Connective tissue disorder (very high CRP). #Elevated d-dimer: Likely reactive. CTA without pulmonary embolism. #Morbid obesity, BMI 47 #Bilateral axillary lymph nodes: ? Reactive Recommendations: -Follow-up SARS-CoV-2 PCR -Obtain transthoracic echo -Obtain HIV test -Obtain GINI, C3-C4 -Continue ceftriaxone and azithromycin for now however will probably stop given normal procalcitonin -Patient is not hypoxic, therefore even if SARS-CoV-2 PCR is positive, there is no indication for dexamethasone or Remdesivir Will follow Britney Varghese MD Infectious Diseases [facility] ([facility] [phone] O [phone]
[2020-08-11] MEDS ORDERED: AZITHROMYCIN 500 MG in SODIUM CHLORIDE 0.9% 250ML 250 ML IV SCH (10:00)
[2020-08-11] MEDS: cefTRIAXone/NS 2 GM/100 ML 2 GM/100 ML BAG IV SCH (10:19)
--- NOTE | 2020-08-11 10:53 | Consultation ---
History of Present Illness Consult date: 08/11/20 Consult reason: cardiac arrest History of present illness: This is a 30-year old female who presents with chest pain, shortness of breath and fever. Of note, patient was recently diagnosed with pneumonia at [place]. Chest x-ray shows bibasilar infiltrates and she is undergoing further evaluation for suspected coronavirus infection. A cardiac consultation has been requested for evaluation of chest pain. Patient is resting in bed and appears comfortable. Patient describes chest pain with deep inspirations. She denies chest pain with palpation. Denies chest pain with position changes. There is no reported prior cardiac history. An ECG is mild sinus tachycardia with diffuse ST changes, suspicious of acute pericarditis. Past History Past Medical History: other (Obesity) Past Surgical History: No surgical history Social history: no significant social history Family history: no significant family history Medications and Allergies Allergies Allergy/AdvReac Type Severity Reaction Status Date / Time No Known Allergies Allergy Verified 05/30/16 22:31 Home Medications Medication Instructions Recorded Confirmed Last Taken Type Naproxen 500 mg PO BID 08/10/20 08/10/20 Unknown History Active Meds: Active Medications Acetaminophen (Tylenol) 650 mg PO Q4H PRN PRN Reason: Pain MILD(1-3)/Fever >100.5/NGUYEN Last Admin: 08/11/20 01:33 Dose: 650 mg Documented by: Aspirin (Ecotrin) 325 mg PO QDAY DAYSI Azithromycin (Zithromax) 500 mg PO QDAY DAYSI Stop: 08/14/20 10:01 Ceftriaxone Sodium (Rocephin/Ns 2 Gm/100 Ml) 2 gm in 100 mls @ 200 mls/hr IV Q24HR DAYSI; Protocol Last Admin: 08/11/20 10:19 Dose: 200 mls/hr Documented by: Azithromycin 500 mg/ Sodium (Chloride) 250 mls @ 250 mls/hr IV Q24HR DAYSI; P rotocol Stop: 08/11/20 15:00 Last Admin: 08/11/20 10:19 Dose: 250 mls/hr Documented by: Magnesium Hydroxide (Milk Of Magnesia) 30 ml PO Q4H PRN PRN Reason: Constipation Morphine Sulfate (Morphine) 2 mg IV Q5MIN PRN PRN Reason: Chest Pain unrelieved by NTG Last Admin: 08/11/20 10:18 Dose: 2 mg Documented by: Nitroglycerin (Nitrostat) 0.4 mg SL Q5M PRN PRN Reason: Chest Pain Ondansetron HCl (Zofran) 4 mg IV Q8H PRN PRN Reason: Nausea And Vomiting Sodium Chloride (Sodium Chloride Flush Syringe 10 Ml) 10 ml IV BID DAYSI Last Admin: 08/11/20 10:18 Dose: 10 ml Documented by: Sodium Chloride (Sodium Chloride Flush Syringe 10 Ml) 10 ml IV PRN PRN PRN Reason: LINE FLUSH Physical Examination Vital Signs Temp Pulse Resp BP Pulse Ox 99.6 F 120 H 17 151/99 100 08/10/20 19:30 08/10/20 19:30 08/10/20 19:30 08/10/20 19:30 08/10/20 19:30 General appearance: no acute distress HEENT: Positive: PERRL Cardiac: Positive: Reg Rate and Rhythm Results 08/11/20 05:38 08/11/20 05:38 Cardiac Enzymes 08/10/20 Range/Units 23:43 Lactate Dehydrogenase 255 H (91-180) units/L Lipids 08/11/20 Range/Units 05:38 Triglycerides 42 (2-149) mg/dL Cholesterol 135 (50-199) mg/dL HDL Cholesterol 45 (40-59) mg/dL Cholesterol/HDL Ratio 3.00 % CBC 08/10/20 08/11/20 Range/Units 20:19 05:38 WBC 10.1 9.6 (4.5-11.0) K/mm3 RBC 3.93 3.54 L (3.65-5.03) M/mm3 Hgb 10.4 9.5 L (10.1-14.3) gm/dl Hct 32.3 28.5 L (30.3-42.9) % Plt Count 319 261 (140-440) K/mm3 Lymph # 1.0 L 1.1 L (1.2-5.4) K/mm3 [place] # 0.5 0.6 (0.0-0.8) K/mm3 Eos # 0.0 0.0 (0.0-0.4) K/mm3 Baso # 0.0 0.0 (0.0-0.1) K/mm3 Comprehensive Metabolic Panel 08/10/20 08/11/20 Range/Units 20:19 05:38 Sodium 136 L 138 (137-145) mmol/L Potassium 4.1 4.0 (3.6-5.0) mmol/L Chloride 99.2 103.2 (98-107) mmol/L Carbon Dioxide 23 21 L (22-30) mmol/L BUN 11 9 (7-17) mg/dL Creatinine 0.5 L 0.5 L (0.6-1.2) mg/dL Glucose 119 H 103 H (65-100) mg/dL Calcium 9.4 8.9 (8.4-10.2) mg/dL Assessment and Plan Chest pain Abnormal ECG Pneumonia on isolation protocol for suspected coronavirus Obesity
--- NOTE | 2020-08-11 14:30 | Progress Note ---
Assessment and Plan --chest pain: CE normal. EKG suggestive of pericarditis Monitor for now, cardiology following follow 2d echo, start NSAID --Recent bilateral pneumonia: Chest x-ray shows bibasilar pneumonia however CTA did not show consolidation. Patient was treated for PNA at [place] early this month cont abx for now Obtain transthoracic echo Obtain HIV test --suspected COVID 19, ordered for test Present on admission with low-grade fever, tachycardia; --Elevated d-dimer: Likely reactive. CTA without pulmonary embolism. --Morbid obesity, BMI 47 dietary recommendation 08/11; follow covid19 result, follow 2d echo, cont abx for now. Cardiology consulted, appreciate recommendation. Subjective Date of service: 08/11/20 Interval history: Patient seen and examined. Medical records and medication list reviewed. No acute event overnight noted by the RN. Patient continues to complain of chest pain with a deep breath. Patient is tolerating diet. Discussed plan of care at bedside with patient. Objective - Constitutional Vitals: Vital Signs - 12hr 08/11/20 08/11/20 08/11/20 02:44 02:52 06:04 Temperature 98.6 F Pulse Rate 158 H 106 H Respiratory 18 Rate Blood Pressure 118/58 118/58 143/87 O2 Sat by Pulse 96 Oximetry 08/11/20 12:23 Temperature 98.9 F Pulse Rate 108 H Respiratory 20 Rate Blood Pressure 122/76 O2 Sat by Pulse 99 Oximetry General appearance: Present: no acute distress, well-nourished - EENT Eyes: PERRL, EOM intact ENT: hearing intact, clear oral mucosa Ears: bilateral: normal - Neck Neck: supple, normal ROM - Respiratory Respiratory effort: normal Respiratory: bilateral: CTA - Cardiovascular Rhythm: regular Heart Sounds: Present: S1 & S2. Absent: gallop, rub Extremities: pulses intact, No edema, normal color, Full ROM - Gastrointestinal General gastrointestinal: Present: soft, non-tender, non-distended, normal bowel sounds - Integumentary Integumentary: clear, warm, dry - Musculoskeletal Musculoskeletal: 1, strength equal bilaterally - Neurologic Neurologic: moves all extremities - Psychiatric Psychiatric: memory intact, appropriate mood/affect, intact judgment & insight - Labs CBC & Chem 7: 08/12/20 09:42 08/12/20 09:42 Labs: Abnormal lab results 08/10/20 08/10/2008/10/20 Range/Units 20:19 20:19 21:24 RBC (3.65-5.03) M/mm3 Hgb (10.1-14.3) gm/dl Hct (30.3-42.9) % MCH 27 L (28-32) pg RDW 17.2 H (13.2-15.2) % Lymph % (Auto) 10.3 L (13.4-35.0) % Lymph # 1.0 L (1.2-5.4) K/mm3 Seg Neutrophils % 84.7 H (40.0-70.0) % Seg Neutrophils # 8.5 H (1.8-7.7) K/mm3 D-Dimer 2388.43 H (0-234) ng/mlDDU Sodium 136 L (137-145) mmol/L Carbon Dioxide (22-30) mmol/L Creatinine 0.5 L (0.6-1.2) mg/dL Glucose 119 H (65-100) mg/dL Lactate Dehydrogenase (91-180) units/L C-Reactive Protein (0.00-1.30) mg/dL 08/10/20 08/11/20 08/11/20 Range/Units 23:43 05:38 05:38 RBC 3.54 L (3.65-5.03) M/mm3 Hgb 9.5 L (10.1-14.3) gm/dl Hct 28.5 L (30.3-42.9) % MCH 27 L (28-32) pg RDW 17.3 H (13.2-15.2) % Lymph % (Auto) 11.2 L (13.4-35.0) % Lymph # 1.1 L (1.2-5.4) K/mm3 Seg Neutrophils % 82.0 H (40.0-70.0) % Seg Neutrophils # 7.9 H (1.8-7.7) K/mm3 D-Dimer (0-234) ng/mlDDU Sodium (137-145) mmol/L Carbon Dioxide 21 L (22-30) mmol/L Creatinine 0.5 L (0.6-1.2) mg/dL Glucose 103 H (65-100) mg/dL Lactate Dehydrogenase 255 H (91-180) units/L C-Reactive Protein 25.00 H (0.00-1.30) mg/dL HEART Score - HEART Score EKG: Normal Age: < 45 Risk factors: No known risk factors Troponin: Troponin T < 0.010 ng/mL (0.00-0.029) 08/11/20 05:38 Troponin: < normal limit - Critical Actions Critical Actions: 0-3 pts:0.9-1.7%risk of adverse cardiac event.Candidate for discharge
[2020-08-11] MEDS ORDERED: traMADol 50 MG TAB PO ONE (22:30)
[2020-08-12] MEDS ORDERED: traMADol 50 MG TAB PO SCH (07:30)
[2020-08-12] MEDS ORDERED: AZITHROMYCIN 250 MG TAB PO SCH (10:00)
[2020-08-12] MEDS ORDERED: ASPIRIN EC 325 MG TAB PO SCH (10:00)
[2020-08-12 10:09] LABS: Basophils % (Auto) 0.3 % (0.0-1.8); Eosinophils % (Auto) 0.3 % (0.0-4.3); Hematocrit 31.2 % (30.3-42.9); Hemoglobin 10.3 gm/dl (10.1-14.3); Lymphocytes # (Auto) 0.8 K/mm3 (1.2-5.4); Lymphocytes % (Auto) 9.1 % (13.4-35.0); Mean Corpuscular HGB Conc 33 % (30-34); Mean Corpuscular Volume 81 fl (79-97); Monocytes # (Auto) 0.6 K/mm3 (0.0-0.8); Platelet Count 302 K/mm3 (140-440); Red Blood Count 3.87 M/mm3 (3.65-5.03); Red Cell Distribution Width 16.6 % (13.2-15.2)
[2020-08-12 10:17] LABS: INR 1.23 (0.87-1.13)
[2020-08-12] MEDS: cefTRIAXone/NS 2 GM/100 ML 2 GM/100 ML BAG IV SCH (10:17)
[2020-08-12 10:26] LABS: Blood Urea Nitrogen 10 mg/dL (7-17); Calcium 9.1 mg/dL (8.4-10.2); Hemolysis Index 11
[2020-08-12 10:49] LABS: BUN/Creatinine Ratio 20
[2020-08-12 12:57] VITALS: BP 152/90
[2020-08-12] MEDS ORDERED: NAPROXEN 500 MG TAB PO SCH (13:00)
--- NOTE | 2020-08-12 14:28 | Discharge Summary ---
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 Her troponin was negative, EKG showed a mild sinus tachycardia with diffuse concave upward ST segment elevation. patient noted to have elevated d-dimer. Initial chest x-ray was suggestive for pneumonia but, CTA chest obtained which showed no PE no pulmonary consolidation. Her Covid test was negative. Her 2D echocardiogram showed EF 60%. Patient was placed on indomethacin 50 mg every 8 hour for acute pericarditis. Patient was then recommended to follow-up with cardiology as outpatient. Discharge diagnosis: Acute chest pain, likely due to acute pericarditis Recent bilateral pneumonia, treated appropriately outpatient Morbid obesity recommended appropriate diet and exercise regimen Suspected COVID-19, ruled out Elevated d-dimer likely reactive CTA chest showed no PE Disposition: DC-01 TO HOME OR SELFCARE Time spent for discharge: 34 minutes Core Measure Documentation - Palliative Care Palliative Care/ Comfort Measures: Not Applicable - Core Measures Any of the following diagnoses?: none Exam - Physical Exam Narrative exam: General appearance: Present: no acute distress, well-nourished - EENT Eyes: PERRL, EOM intact ENT: hearing intact, clear oral mucosa Ears: bilateral: normal - Neck Neck: supple, normal ROM - Respiratory Respiratory effort: normal Respiratory: bilateral: CTA - Cardiovascular Rhythm: regular Heart Sounds: Present: S1 & S2. Absent: gallop, rub Extremities: pulses intact, No edema, normal color, Full ROM - Gastrointestinal General gastrointestinal: Present: soft, non-tender, non-distended, normal bowel sounds - Integumentary Integumentary: clear, warm, dry - Musculoskeletal Musculoskeletal: 1, strength equal bilaterally - Neurologic Neurologic: moves all extremities - Psychiatric Psychiatric: memory intact, appropriate mood/affect, intact judgment & insight - Constitutional Vitals: Temp Pulse Resp BP Pulse Ox 98.9 F 113 H 24 152/90 97 08/12/20 11:19 08/12/20 11:19 08/12/20 11:19 08/12/20 11:19 08/12/20 11:19 Plan Activity: advance as tolerated Weight Bearing Status: Non-Weight Bearing Diet: low fat, low salt Follow up with: PRIMARY MD NESSA [Primary Care Provider] - 3-5 Days CARMEN BURKETT MD [Staff Physician] - 7 Days Prescriptions: Indomethacin [Indocin] 50 mg PO Q8HR #20 capsule
--- NOTE | 2020-08-12 14:40 | Progress Note ---
Assessment and Plan Cultures: SARS-CoV-2 PCR negative Assessment: 30 years old female with history of morbid obesity and recent pneumonia admitted on due to 24-hour history of left-sided chest pain radiated to the left shoulder and back: #Sepsis: Present on admission with low-grade fever, tachycardia; secondary to possible pneumonia #Pleuritic chest pain: Secondary small left pleural effusion, small pericardial effusion. Chest x-ray shows bibasilar pneumonia however CTA did not show consolidation. Patient is not hypoxic. Patient without persistent cough. Complaining mainly of chest pain dyspnea on exertion. Noted on CTA no pulmonary embolism however cardiomegaly and small pericardial effusion and bilateral axillary lymph nodes. Procalcitonin is normal making bacterial pneumonia less likely. Patient with recent history of pneumonia on July 21, 2020 treated at [facility]. ? Viral syndrome ? COVID ? polyserositis ? Connective tissue disorder (very high CRP). Transthoracic echo with EF 60 to 65%, minimal pericardial effusion, mild to moderate pulmonary hypertension. #Elevated d-dimer: Likely reactive. CTA without pulmonary embolism. #Morbid obesity, BMI 47 #Bilateral axillary lymph nodes: ? 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 [facility], [place], [facility] M [phone] O [phone] Subjective Date of service: 08/12/20 Objective - Constitutional Vitals: Vital Signs Temp Pulse Resp BP Pulse Ox 98.9 F 113 H 24 152/90 97 08/12/20 11:19 08/12/20 11:19 08/12/20 11:19 08/12/20 11:19 08/12/20 11:19 Temperature -Last 24 Hours Temperature 98.9 F Temperature 98.8 F Temperature 100.3 F Temperature 98.9 F - Labs CBC & Chem 7: 08/12/20 09:42 08/12/20 09:42 Labs: Abnormal lab results 08/12/20 08/12/20 08/12/20 Range/Units 09:42 09:42 09:42 MCH 27 L (28-32) pg RDW 16.6 H (13.2-15.2) % Lymph % (Auto) 9.1 L (13.4-35.0) % Lymph # (Auto) 0.8 L (1.2-5.4) K/mm3 Seg Neutrophils % 83.3 H (40.0-70.0) % PT 15.8 H (12.2-14.9) Sec. INR 1.23 H (0.87-1.13) Carbon Dioxide 21 L (22-30) mmol/L Creatinine 0.5 L (0.6-1.2) mg/dL Glucose 114 H (65-100) mg/dL
[2020-08-12] MEDS: ACETAMINOPHEN 325 MG TAB PO PRN (16:57)
[2020-08-12] MEDS ORDERED: INDOMETHACIN 25 MG CAP PO SCH (22:00)
[2020-08-18 00:08] LABS: ANA Screen, IFA Positive (Negative)
== END 2020-08-12 18:25 | disposition home or self-care (01) ==
LOC: ED 19:09 → 3A 23:49
PROVIDERS: ADMIT Internal Medicine Geriatric Medicine; ATTEND Internal Medicine
DX: R07.89 Other chest pain (principal); Z20.828 Contact with and (suspected) exposure to other viral communicable diseases; A41.9 Sepsis, unspecified organism; J18.9 Pneumonia, unspecified organism; E66.01 Morbid (severe) obesity due to excess calories; R09.02 Hypoxemia; R79.89 Other specified abnormal findings of blood chemistry; R94.31 Abnormal electrocardiogram [ECG] [EKG]; I31.3 Pericardial effusion (noninflammatory); I10 Essential (primary) hypertension; Z68.42 Body mass index [BMI] 45.0-49.9, adult
CPT/HCPCS: 36415; 71046; 71275; 80048; 80061; 82728; 83615; 83880; 84145; 84484; 84703; 85025; 85379; 85610; 86038; 86140; 86160; 93005; 93306; 96365; 96366; 96367; 96375; 96376; 99291; G0378; J0456; J0696; J2270; J2405; J7030; J7050; Q9967; U0003

== ENCOUNTER 2021-05-04 07:09 | Emergency (ER) | payer MEDICAID, OTHER ==
[2021-05-04 10:24] LABS: Basophils % (Auto) 0.2 % (0.0-1.8); Eosinophils # (Auto) 0.1 K/mm3 (0.0-0.4); Eosinophils % (Auto) 0.9 % (0.0-4.3); Hematocrit 36.7 % (30.3-42.9); Lymphocytes % (Auto) 12.9 % (13.4-35.0); Mean Corpuscular HGB Conc 33 % (30-34); Mean Corpuscular Volume 86 fl (79-97); Monocytes # (Auto) 0.4 K/mm3 (0.0-0.8); Platelet Count 246 K/mm3 (140-440); Red Blood Count 4.28 M/mm3 (3.65-5.03); Red Cell Distribution Width 15.2 % (13.2-15.2)
--- NOTE | 2021-05-04 10:26 | Emergency Department Report ---
HPI - General Chief Complaint: Dyspnea/Respdistress Time Seen by Provider: 05/04/21 09:14 - [facility] HPI: Room 36 The patient is a 30-year-old female present with a chief complaint of right chest discomfort with inspiration. Patient states she has had discomfort or tightness in her right chest with inspiration since February intermittently. Patient states in February she was initially diagnosed with pneumonia and given 2 courses of antibiotics. Patient states she eventually saw a lung specialist last week but has not yet had any diagnoses given. Patient admits to some shortness of breath but denies cough, fever or nausea/vomiting. Patient denies dysuria. Patient states she has not noticed a change in her discomfort with meals ED Past Medical Hx - Past Medical History Previous Medical History?: No Hx Arthritis: Yes (Rheumatoid arthritis) Additional medical history: OBESITY, Vaginal delivery x 1, pericarditis (July 2020) - Surgical History Past Surgical History?: No - Family History Family history: no significant - Social History Smoking Status: Never Smoker Substance Use Type: None (Denies illicit drug use) - Medications Home Medications: Home Medications Medication Instructions Recorded Confirmed Last Taken Type Indomethacin [Indocin] 50 mg PO Q8HR #20 capsule 08/12/20 Unknown Rx traMADoL [Ultram] 50 mg PO Q6HR PRN #14 tablet 05/04/21 Unknown Rx ED Review of Systems ROS: Stated complaint: SOB/TIGHTNESS IN CHEST Other details as noted in HPI Constitutional: denies: fever Eyes: denies: eye pain ENT: denies: throat pain Respiratory: shortness of breath. denies: cough Cardiovascular: chest pain Endocrine: no symptoms reported Gastrointestinal: denies: nausea, vomiting Genitourinary: denies: dysuria Musculoskeletal: back pain Neurological: denies: headache Physical Exam - Physical Exam Vital Signs: Vital Signs 05/04/21 07:22 Temperature 98.7 F Pulse Rate 100 H Respiratory 18 Rate Blood Pressure 154/94 O2 Sat by Pulse 99 Oximetry Physical Exam: GENERAL: The patient is well-developed well-nourished female lying on stretcher not appearing to be in acute distress. [] HEENT: Normocephalic. Atraumatic. Extraocular motions are intact. Patient has moist mucous membranes. NECK: Supple. Trachea midline CHEST/LUNGS: Clear to auscultation. There is no respiratory distress noted. HEART/CARDIOVASCULAR: Regular. There is no tachycardia. There is no gallop rub or murmur. ABDOMEN: Abdomen is soft, nontender. Absent Castro's. Patient has normal bowel sounds. There is no abdominal distention. SKIN: There is no rash. There is no edema. There is no diaphoresis. NEURO: The patient is awake, alert, and oriented. The patient is cooperative. The patient has no focal neurologic deficits. The patient has normal speech MUSCULOSKELETAL: There is no evidence of acute injury. ED Course Vital Signs 05/04/21 07:22 Temperature 98.7 F Pulse Rate 100 H Respiratory 18 Rate Blood Pressure 154/94 O2 Sat by Pulse 99 Oximetry - Consultations Consultation #1: 05/04/21 13:[address] Wilson paged 05/04/21 13:37 Case discussed with medical practice assistant Dr. Wilson-patient may follow-up in office within 1 week ED Medical Decision Making - Lab Data Result diagrams: 05/04/21 09:36 05/04/21 09:36 Laboratory Tests 05/04/21 05/04/21 05/04/21 09:36 09:36 09:36 WBC 7.9 RBC 4.28 Hgb 12.0 Hct 36.7 MCV 86 MCH 28 MCHC 33 RDW 15.2 Plt Count 246 Lymph % (Auto) 12.9 L [place] % (Auto) 5.0 Eos % (Auto) 0.9 Baso % (Auto) 0.2 Lymph # (Auto) 1.0 L [place] # (Auto) 0.4 Eos # (Auto) 0.1 Baso # (Auto) 0.0 Seg Neutrophils % 81.0 H Seg Neutrophils # 6.4 D-Dimer Sodium 140 Potassium 4.0 Chloride 104.0 Carbon Dioxide 27 Anion Gap 13 BUN 12 Creatinine 0.6 Estimated GFR > 60 BUN/Creatinine Ratio 20 Glucose 98 Calcium 9.3 Total Bilirubin 0.60 AST 11 ALT 11 Alkaline Phosphatase 44 Total Creatine Kinase 35 CK-MB (CK-2) < 1.0 CK-MB (CK-2) Rel Index 2.8 Troponin T < 0.010 Total Protein 6.9 Albumin 3.6 L Albumin/Globulin Ratio 1.1 Lipase HCG, Qual Negative 05/04/21 05/04/21 10:01 Unknown WBC RBC Hgb Hct MCV MCH MCHC RDW Plt Count Lymph % (Auto) [place] % (Auto) Eos % (Auto) Baso % (Auto) Lymph # (Auto) [place] # (Auto) Eos # (Auto) Baso # (Auto) Seg Neutrophils % Seg Neutrophils # D-Dimer 3362.77 H Sodium Potassium Chloride Carbon Dioxide Anion Gap BUN Creatinine Estimated GFR BUN/Creatinine Ratio Glucose Calcium Total Bilirubin AST ALT Alkaline Phosphatase Total Creatine Kinase CK-MB (CK-2) CK-MB (CK-2) Rel Index Troponin T Total Protein Albumin Albumin/Globulin Ratio Lipase 13 HCG, Qual - EKG Data -: EKG Interpreted by Me EKG shows normal: sinus rhythm Rate: normal - EKG Data When compared to previous EKG there are: previous EKG unavailable Interpretation: normal EKG - Radiology Data Radiology results: report reviewed (Chest x-ray, right upper quadrant ultrasound, CT chest), image reviewed (Chest x-ray, right upper quadrant ultrasound, CT chest) interpreted by me: Chest x-ray- right-sided pleural effusion. No pneumothorax. [address] [address] XRay Report Signed Patient: KWESI ADAM MR#: [id number] : 1990 Acct:[id number] Age/Sex: 30 / F ADM Date: 05/04/21 Loc: ED Attending Dr: Ordering Physician: TIKI TURNER Date of Service: 05/04/21 Procedure(s): XR chest routine 2V Accession Number(s): [id number] cc: TIKI TURNER Fluoro Time In Minutes: CHEST 2 VIEWS INDICATION / CLINICAL INFORMATION: Shortness of breath. COMPARISON: 08/10/2020 FINDINGS: SUPPORT DEVICES: None. HEART / MEDIASTINUM: No significant abnormality. LUNGS / PLEURA: Mild pleural-parenchymal disease on the right No pneumothorax. ADDITIONAL FINDINGS: No significant additional findings. IMPRESSION: Suboptimal inspiration. There is mild right basilar pleural- parenchymal disease present. The left lung is clear. Signer Name: Leandro Sanchez MD FACR Signed: 05/04/2021 11:01 AM Workstation Name: [id number] Transcribed By: MS Dictated By: Leandro Sanchez MD Electronically Authenticated By: Leandro Sanchez MD Signed Date/Time: 05/04/21 110 DD/ 110 TD/TT: Print Cancel [address] [place] [address] Ultrasound Report Signed Patient: KWESI ADAM MR#: [id number] : 1990 Acct:[id number] Age/Sex: 30 / F ADM Date: 05/04/21 Loc: ED Attending Dr: Ordering Physician: PATTY PECK MD Date of Service: 05/04/21 Procedure(s): US abdomen limited Accession Number(s): [id number] cc: PATTY PECK MD ULTRASOUND ABDOMEN, LIMITED (RIGHT UPPER QUADRANT) INDICATION / CLINICAL INFORMATION: Right upper quadrant pain. COMPARISON: None available. FINDINGS: PANCREAS: Visualized portion shows no significant abnormality. LIVER: The liver measures 20.6 cm in length and is normal in echogenicity. GALLBLADDER: There is a small echogenic focus within the gallbladder lumen. No gallbladder wall thickening or pericholecystic edema. No sonographic Castro's sign was elicited. BILE DUCTS: No significant abnormality. Common bile duct measures 3 mm. RIGHT KIDNEY: The right kidney measures 10.8 cm in length and is normal in echogenicity. FREE FLUID: None. ADDITIONAL FINDINGS: None. IMPRESSION: 1. Uncomplicated cholelithiasis. 2. Hepatomegaly. Signer Name: Steve Sanchez MD Signed: 05/04/2021 11:59 AM Workstation Name: [id number] Transcribed By: SS Dictated By: STEVE SANCHEZ Electronically Authenticated By: STEVE SANCHEZ Signed Date/Time: 05/04/21 1159 DD/ 1138 TD/TT: Print Cancel - Differential Diagnosis Pleurisy, cholelithiasis, PE, pneumonia, gastritis Critical care attestation.: If time is entered above; I have spent that time in minutes in the direct care of this critically ill patient, excluding procedure time. ED Disposition Clinical Impression: Pleural effusion, right, Cholelithiasis Disposition: DC- TO HOME OR SELFCARE Is pt being admited?: No Does the pt Need Aspirin: No Condition: Stable Instructions: Cholelithiasis, [id number] Additional Instructions: Return to the emergency department should you develop worsening symptoms, inability to tolerate food or liquids, high fever or any other concerns Prescriptions: traMADoL [Ultram] 50 mg PO Q6HR PRN #14 tablet PRN Reason: Pain Referrals: TERE WILSON MD [Staff Physician] - 7-10 days (Please follow-up with your medical practice assistant within 1 week) Time of Disposition: 13:39
[2021-05-04 10:51] LABS: Alanine Aminotransferase 11 units/L (7-56); Albumin 3.6 g/dL (3.9-5); Blood Urea Nitrogen 12 mg/dL (7-17); Calcium 9.3 mg/dL (8.4-10.2); Hemolysis Index 1
[2021-05-04 10:52] LABS: BUN/Creatinine Ratio 20; Creatine Kinase MB < 1.0 ng/mL (0.0-4.0)
--- NOTE | 2021-05-04 11:06 | XRay Report ---
CHEST 2 VIEWS INDICATION / CLINICAL INFORMATION: Shortness of breath. COMPARISON: 08/10/2020 FINDINGS: SUPPORT DEVICES: None. HEART / MEDIASTINUM: No significant abnormality. LUNGS / PLEURA: Mild pleural-parenchymal disease on the right No pneumothorax. ADDITIONAL FINDINGS: No significant additional findings. IMPRESSION: Suboptimal inspiration. There is mild right basilar pleural-parenchymal disease present. The left geremias g is clear. Signer Name: Leandro Sanchez MD FACR Signed: 05/04/2021 11:01 AM Workstation Name: [id number]
--- NOTE | 2021-05-04 12:03 | Ultrasound Report ---
ULTRASOUND ABDOMEN, LIMITED (RIGHT UPPER QUADRANT) INDICATION / CLINICAL INFORMATION: Right upper quadrant pain. COMPARISON: None available. FINDINGS: PANCREAS: Visualized portion shows no significant abnormality. LIVER: The liver measures 20.6 cm in length and is normal in echogenicity. GALLBLADDER: There is a small echogenic focus within the gallbladder lumen. No gallbladder wall thick ening or pericholecystic edema. No sonographic Castro's sign was elicited. BILE DUCTS: No significant abnormality. Common bile duct measures 3 mm. RIGHT KIDNEY: The right kidney measures 10.8 cm in length and is normal in echogenicity. FREE FLUID: None. ADDITIONAL FINDINGS: None. IMPRESSION: 1. Uncomplicated cholelithiasis. 2. Hepatomegaly. Signer Name: Almas Sanchez MD Signed: 05/04/2021 11:59 AM Workstation Name: [id number]
--- NOTE | 2021-05-04 13:03 | Cat Scan Report ---
CTA CHEST WITH CONTRAST INDICATION : Right chest discomfort, pleurisy OMNI 350 100 ML. TECHNIQUE: Axial imaging performed through the chest, with contrast bolus timing set to maximize opa cification of the pulmonary arteries. Sagittal and coronal reformatted images. 3-plane MIP reformatte d images were obtained. All CT scans at this location are performed using CT dose reduction for ALAR A by means of automated exposure control. 100 mL of intravenous contrast administered. COMPARISON: 08/10/2020 FINDINGS: Bolus: Contrast bolus timing is adequate. PTE: No filling defect is present to suggest PTE. Mediastinum: Heart and great vessels appear normal. No pathologic mediastinal adenopathy. Lungs: Small right pleural effusion layers posteriorly. Mild atelectatic changes are noted at the peacehealtht lung base. The left lung is clear. No pneumothorax. Bones: No significant abnormality. Upper abdomen: Slightly prominent bilateral axillary lymph nodes are again noted and unchanged since 08/10/2020. IMPRESSION: No evidence for pulmonary embolus. Small right pleural effusion. Signer Name: Carlton Wade Jr, MD Signed: 05/04/2021 12:58 PM Workstation Name: [id number]
[2021-05-04 13:52] VITALS: BP 146/98
--- NOTE | 2021-05-07 18:55 | Electrocardiograph Report ---
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
--- NOTE | 2021-05-07 19:04 | Electrocardiograph Report ---
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
== END 2021-05-04 13:50 | disposition home or self-care (01) ==
LOC: ED 07:09
DX: J90 Pleural effusion, not elsewhere classified (principal); K80.20 Calculus of gallbladder without cholecystitis without obstruction; M19.90 Unspecified osteoarthritis, unspecified site; E66.8 Other obesity; Z98.890 Other specified postprocedural states; Z79.899 Other long term (current) drug therapy
CPT/HCPCS: 36415; 71046; 71275; 76705; 80053; 82550; 82553; 83690; 84484; 84703; 85025; 85379; 93005; 99284; Q9967